=== PATIENT | male | born 1955 | race African-American/Black ===

== ENCOUNTER 2018-12-22 00:39 | Emergency (ER) | payer SELFPAY ==
[2018-12-22 01:41] LABS: Base Excess-Venous 3.1 mmol/L (0 (+/- 2.5)); Bicarbonate (HCO3v) 29.6 mmol/L (22.0-29.0); CO2 Tension (PvCO2) 51.8 mmHg (41.0-51.0); O2 Tension (PvO2) 47.8 mmHg (35.0-45.0); pH (Venous) 7.364 (7.35-7.45)
[2018-12-22 01:42] LABS: Calcium, Ionized 1.21 mmol/L (1.12-1.32); Hemoglobin - Calc 13.5 g/dL (12.0-18.0); Potassium 3.9 mmol/L (3.4-4.7); T. Carbon Dioxide 31.2 mmol/L (1.0-85.0)
[2018-12-22 01:45] LABS: #Basophils 0.1 thou/uL (0.0-0.2); #Eosinphils 0.1 thou/uL (0.0-0.7); #Lymphocytes 2.8 thou/uL (1.20-3.40); #Monocytes 0.7 thou/uL (0.11-0.59); #Neutrophils 4.8 thou/uL (1.40-6.50); %Basophils 1.5 % (0.0-1.0); %Eosinophils 1.3 % (0.0-10.0); %Lymphocytes 32.6 % (21.0-51.0); %Monocytes 8.4 % (0.0-10.0); %Neutrophils 56.2 % (42.0-75.0); Hemoglobin 12.1 g/dL (14.0-18.0); Mean Corpuscular HGB CONC 31.3 g/dL (32.0-36.0); Mean Corpuscular Hemoglobin 27.3 pg (27.0-31.0); Mean Corpuscular Volume 87.2 fL (78.0-98.0); Mean Platelet Volume 8.4 fL (7.4-10.4); Platelet Count 275 thou/uL (130-400); Red Blood Cell (RBC) Count 4.42 mill/uL (4.70-6.10); White Blood Cell (WBC) Count 8.5 thou/uL (4.8-10.8)
[2018-12-22 01:54] LABS: Magnesium 2.2 mg/dL (1.6-2.6); Phosphorus 4.2 mg/dL (2.3-4.7)
[2018-12-22 01:55] LABS: ALT (SGPT) 17 U/L (8-55); AST (SGOT) 18 U/L (5-34); Alkaline Phosphatase 51 U/L (40-150); Anion Gap 15 mmol/L (10-20); BUN (Urea Nitrogen) 19 mg/dL (8.4-25.7); Bilirubin, Total 1.1 mg/dL (0.2-1.2); Calc. Creatinine Clearance 0 mL/min (70-130); Calcium 9.3 mg/dL (7.8-10.44); Carbon Dioxide 26 mmol/L (23-31); Chloride 108 mmol/L (98-107); Estimated GFR-MDRD 56; Glucose 264 mg/dL (80-115); Sodium 145 mmol/L (136-145)
== END 2018-12-22 02:09 ==
LOC: MADERS 00:39
DX: E11.65 Type 2 diabetes mellitus with hyperglycemia (principal); E78.5 Hyperlipidemia, unspecified; I10 Essential (primary) hypertension; F41.9 Anxiety disorder, unspecified; F17.210 Nicotine dependence, cigarettes, uncomplicated
CPT/HCPCS: 36415; 36416; 80053; 82330; 82803; 83735; 84100; 85025; 99283